=== PATIENT | male | born 1945 | race African-American/Black ===

== ENCOUNTER 2017-08-30 21:31 | Emergency (ER) | payer MEDICARE, MEDICAID ==
[~2017-08-30] VITALS: Ht 165.1 cm; Wt 81.0 kg
[2017-08-30] MEDS: KETOROLAC 60MG/2ML VIAL IM ONE (00:15)
[2017-08-31 03:02] VITALS: BP 145/81
== END 2017-08-31 03:05 | disposition home or self-care (01) ==
LOC: ER 22:01
DX: M79.671 Pain in right foot (principal); I10 Essential (primary) hypertension; M10.9 Gout, unspecified
CPT/HCPCS: 73630; 96372; 99284; J1885

== ENCOUNTER 2017-12-27 10:03 | Emergency (ER) | payer MEDICARE, MEDICAID ==
[~2017-12-27] VITALS: Ht 160 cm; Wt 82.0 kg
[2017-12-27] MEDS ORDERED: IBUPROFEN 600MG TABLET PO STA (11:57)
[2017-12-27 12:11] VITALS: BP 173/58
== END 2017-12-27 13:20 | disposition home or self-care (01) ==
LOC: ER 12:15
DX: M17.11 Unilateral primary osteoarthritis, right knee (principal); M25.461 Effusion, right knee; I10 Essential (primary) hypertension
CPT/HCPCS: 73562; 99284